=== PATIENT | female | born 1995 | race African-American/Black ===

== ENCOUNTER 2016-11-02 22:03 | Emergency (ER) | payer OTHER ==
[~2016-11-02] VITALS: Ht 165.1 cm; Wt 59.0 kg
--- NOTE | 2016-11-02 22:11 | PD ---
Physical Exam Date Seen by Provider: Nov 02, 2016 Time Seen by Provider: 22:09 Narrative 21 year old female presents to the emergency department for evaluation of sharp left lower abdominal/pelvic pain that started 2 days ago. LMP 10/18/2016. Pain 10/05. Denies any urinary symptoms. Patient awaiting bed placement. [facility] Supervised Visit with FILIBERTO: Nisreen Cotter Nov 02, 2016 22:11
[2016-11-02 22:46] VITALS: BP 132/58; PULSE 78; RESP 20; TEMP 98.6; O2SAT 98
[2016-11-02 22:59] VITALS: BP 126/90; PULSE 94; RESP 14; TEMP 98; O2SAT 99
[2016-11-03] MEDS ORDERED: DICL75TA PO (19:10)
== END 2016-11-02 22:57 | disposition left against medical advice (07) ==
LOC: NED 22:03
DX: R10.32 Left lower quadrant pain (principal); R10.2 Pelvic and perineal pain
CPT/HCPCS: 99281

== ENCOUNTER 2016-11-03 16:54 | Emergency (ER) | payer OTHER ==
[2016-11-03 16:55] VITALS: BP 136/81; PULSE 86; RESP 16; TEMP 99.3; O2SAT 98
[2016-11-03] MEDS ORDERED: AZITHROMYCIN PWD FOR SUSP 1 GM PACKET PO ONE (18:00)
--- NOTE | 2016-11-03 18:05 | PD ---
HPI Chief Complaint: Abdominal Pain Time Seen by Provider: 18:01 Travel History International Travel<30 days: No Contact w/Intl Traveler<30days: No Traveled to known affect area: No History of Present Illness HPI 21-year-old black female presents emergency department with a 3-4 day history of lower pelvic discomfort. She states that she has had a white vaginal discharge, increased urinary frequency and dysuria. She also complains of some mild lower back pain worse on the left. She states that there is no palliative activity. She does report some increase pain with movement. She denies any associated fever or chills, nausea, vomiting or upper abdominal pain. No rashes or lesions. She reports one sexual partner. She states that she usually uses condoms but not all the time. Patient's appetite has been unaffected. PFSH Past Medical History Narrative Medical Asthma Asthma: Yes Respiratory: Yes (ASTHMA) Tetanus Vaccination: < 5 Years ?: Not LMP: 10/23/16 : 0 Past Surgical History Narrative Surgical tONSILLECTOMY Tonsillectomy: Yes Other Surgery: Yes (ENT A CHILD) Social History Alcohol Use: Yes (occ) Tobacco Use: Yes Substance Use: Yes (marijuana) Allergies-Medications (Allergen,Severity, Reaction): Coded Allergies: Penicillin (Verified Allergy, Severe, 11/03/16) Amoxicillin (Verified Allergy, Unknown, 11/03/16) Uncoded Allergies: LORIBID (Allergy, Unknown, 01/20/16) Reported Meds & Prescriptions Reported Meds & Active Scripts Active Diclofenac Sodium DR (Diclofenac Sodium) 75 Mg Tabdr 75 Mg PO BID Review of Systems Except as stated in HPI: all other systems reviewed are Neg General / Constitutional: No: Fever, Chills Eyes: No: Blurred Vision, Photophobia HENT: No: Headaches, Lightheadedness Cardiovascular: No: Chest Pain or Discomfort, Palpitations Respiratory: No: Cough, Shortness of Breath Gastrointestinal: No: Nausea, Vomiting, Abdominal Pain Genitourinary: Positive: Frequency, Dysuria, Pelvic Pain, Discharge, No: Vaginal Bleeding Musculoskeletal: No: Myalgias, Arthralgias Skin: No Rash, No Itching Physical Exam Narrative GENERAL: Well-developed, well-nourished in no apparent distress. Nontoxic appearing. HEAD: Normocephalic, atraumatic. EYES: Pupils equal round and reactive. Extraocular motions intact. No scleral icterus. No injection or drainage. ENT: Nose clear. Throat without erythema, tonsillar hypertrophy or exudate. Uvula midline. Airway patent. NECK: Trachea midline. Supple, nontender, moves head freely. No central bony tenderness or spasm. CARDIOVASCULAR: Regular rate and rhythm without murmurs, gallops, or rubs. RESPIRATORY: Clear to auscultation. Breath sounds equal bilaterally. No wheezes , rales, or rhonchi. GASTROINTESTINAL: Abdomen soft, mild suprapubic tenderness, nondistended. No hepato-splenomegaly, or palpable masses. No guarding. EXTREMITIES: No clubbing, cyanosis, or edema. No joint tenderness. BACK: Left lower back pain without deformity. Positive left flank tenderness. NEUROLOGICAL: Awake, alert and oriented x 3 .Cranial nerves grossly intact. Motor and sensory grossly within normal limits. Normal speech. Data Data Last Documented VS Vital Signs Date Time Temp Pulse Resp B/P Pulse Ox O2 Delivery O2 Flow Rate FiO2 11/03/16 19:15 66 16 120/59 99 11/03/16 16:55 99.3 Room Air Orders Gc And Chlamydia Pcr (11/03/16 17:57) Wet Prep Profile (11/03/16 17:57) Urinalysis - C+S If Indicated (11/03/16 17:57) Azithromycin Powd Pack (Zithromax Powd P (11/03/16 18:00) Ed Urine Pregnancytest Poc (11/03/16 17:57) Labs Laboratory Tests Test 11/03/16 18:30 Urine Color YELLOW Urine Turbidity CLEAR Urine pH 6.5 Urine Specific [place] 1.028 Urine Protein 30 mg/dL Urine Glucose (UA) NEG mg/dL Urine Ketones NEG mg/dL Urine Occult Blood NEG Urine Nitrite NEG Urine Bilirubin NEG Urine Urobilinogen 2.0 MG/DL Urine Leukocyte Esterase NEG Urine RBC 2 /hpf Urine WBC 2 /hpf Urine Squamous Epithelial 1 /hpf Cells Urine Mucus FEW /lpf Microscopic Urinalysis Comment CULT NOT INDICATED Clue Cells (Wet Prep) NONE SEEN Vaginal Trichomonas (Wet Prep) NONE SEEN Vaginal Yeast (Wet Prep) NONE SEEN MDM Medical Decision Making Medical Screen Exam Complete: Yes Emergency Medical Condition: Yes Medical Record Reviewed: Yes Interpretation(s) Laboratory Tests Test 11/03/16 18:30 Urine Color YELLOW Urine Turbidity CLEAR Urine pH 6.5 Urine Specific [place] 1.028 Urine Protein 30 mg/dL Urine Glucose (UA) NEG mg/dL Urine Ketones NEG mg/dL Urine Occult Blood NEG Urine Nitrite NEG Urine Bilirubin NEG Urine Urobilinogen 2.0 MG/DL Urine Leukocyte Esterase NEG Urine RBC 2 /hpf Urine WBC 2 /hpf Urine Squamous Epithelial 1 /hpf Cells Urine Mucus FEW /lpf Microscopic Urinalysis Comment CULT NOT INDICATED Clue Cells (Wet Prep) NONE SEEN Vaginal Trichomonas (Wet Prep) NONE SEEN Vaginal Yeast (Wet Prep) NONE SEEN Differential Diagnosis Differential diagnosis: Ureterolithiasis, pyelonephritis, UTI, vaginitis, STD Narrative Course Patient's urine is sent for lab and they all because been set up for cultures. Patient is given 2 g of Zithromax due to penicillin and Lorabid allergy. Patient's wet prep is negative. Her urine is negative. This is pelvic pain Procedures Procedure Narrative GENITOURINARY: Normal external genitalia without lesions or erythema. Vaginal vault without blood or drainage. Cervical os was closed without drainage. No cervical motion tenderness. Uterus nontender and nonenlarged. Bilateral adnexa nontender without masses. Diagnosis Primary Impression: Pelvic pain Patient Instructions: General Instructions Departure Forms: Tests/Procedures, Work Release Special Instructions: No work 2 days. Additional Instructions: Rest. Increase fluids. Diclofenac. Follow-up with your doctor in next 2-3 days. Return to the ER for any problems or worsening. Med/Other Pt SpecificInfo: Prescription(s) given Scripts Diclofenac Sodium DR 75 Mg Tabdr75 Mg PO BID #10 TAB Prov:Lina Null MD 11/03/16 Disposition: 01 DISCHARGE HOME Condition: Stable Rashawn Henao Nov 03, 2016 18:05
[2016-11-03 19:02] LABS: BLOOD, URINE NEG (NEG); COMMENT (UR) CULT NOT INDICATED; CULTURE IF INDICATED CULT NOT INDICATED; GLUCOSE,URINE NEG (NEG); KETONE, URINE NEG (NEG); MUCUS URINE FEW /lpf (OCC); NITRITE,URINE NEG (NEG); PH, URINE 6.5 (5.0-8.5); SQUAMOUS EPITHELIAL CELL URINE 1 /hpf (0-5); URINE COLOR YELLOW (YELLW/STRAW)
[2016-11-03] MEDS ORDERED: DICL75TA PO (19:10)
[2016-11-03 19:15] VITALS: BP 120/59; PULSE 66; RESP 16; O2SAT 99
[2016-11-03 22:11] LABS: CHLAMYDIA PCR NOT DETECTED (NOT DETECT); NEISSERIA PCR NOT DETECTED (NOT DETECT)
== END 2016-11-03 19:21 | disposition home or self-care (01) ==
LOC: NEPD 16:54
DX: R10.2 Pelvic and perineal pain (principal); R30.0 Dysuria; N89.8 Other specified noninflammatory disorders of vagina; R35.0 Frequency of micturition; M54.5 Low back pain; J45.909 Unspecified asthma, uncomplicated; Z72.0 Tobacco use
CPT/HCPCS: 81001; 84703; 87210; 87491; 87591; 99284

== ENCOUNTER 2016-12-06 23:55 | Emergency (ER) | payer OTHER ==
[~2016-12-06] VITALS: Ht 165.1 cm; Wt 60.0 kg
[~2016-12-06 23:55] MED LIST: DICL75TA PO
[2016-12-06 23:58] VITALS: BP 107/75; PULSE 77; RESP 16; TEMP 98.5; O2SAT 100
--- NOTE | 2016-12-07 01:54 | PD ---
HPI Chief Complaint: Respiratory Symptoms Time Seen by Provider: 01:47 Travel History International Travel<30 days: No Contact w/Intl Traveler<30days: No Traveled to known affect area: No History of Present Illness HPI This is a 21-year-old female to asthma, presents today with points of wheezing and cough. The patient states that she is out of her albuterol inhaler. She denies any fevers, chills. There are no other complaints the time of my examination. PFSH Past Medical History Asthma: Yes Respiratory: Yes (ASTHMA) Tetanus Vaccination: Unknown Influenza Vaccination: No ?: Not LMP: 11/15/16 : 0 Past Surgical History Tonsillectomy: Yes Other Surgery: Yes (ENT A CHILD) Social History Alcohol Use: Yes (WEEKENDS) Tobacco Use: Yes (1PPW) Substance Use: No Allergies-Medications (Allergen,Severity, Reaction): Coded Allergies: Penicillin (Verified Allergy, Severe, 12/07/16) Amoxicillin (Verified Allergy, Unknown, 12/07/16) Uncoded Allergies: LORIBID (Allergy, Unknown, 01/20/16) Reported Meds & Prescriptions Reported Meds & Active Scripts Active Ventolin Hfa 18 GM Inh (Albuterol Sulfate) 90 Mcg/Act Aer 2 Puff INH Q4-6H PRN Diclofenac Sodium DR (Diclofenac Sodium) 75 Mg Tabdr 75 Mg PO BID Reported Ventolin Hfa 18 GM Inh (Albuterol Sulfate) 90 Mcg/Act Aer 2 Puff INH Q6H PRN Review of Systems Except as stated in HPI: all other systems reviewed are Neg General / Constitutional: No: Fever, Chills HENT: No: Headaches, Lightheadedness Cardiovascular: No: Chest Pain or Discomfort, Palpitations Respiratory: Positive: Cough (nonproductive), Shortness of Breath, Wheezing Physical Exam Narrative GENERAL: Well-nourished, well-developed patient, in no acute distress. SKIN: Focused skin assessment warm/dry. HEAD: Normocephalic/atraumatic. EYES: No scleral icterus. No injection or drainage. NECK: Supple, trachea midline. CARDIOVASCULAR: Regular rate and rhythm without murmurs, gallops, or rubs. RESPIRATORY: Wheezing at the bilateral bases. No Rales appreciated NEUROLOGICAL: Awake and alert. Cranial nerves II through XII intact. Motor grossly within normal limits. Five out of 5 muscle strength in all muscle groups. Normal speech. Data Data Last Documented VS Vital Signs Date Time Temp Pulse Resp B/P Pulse Ox O2 Delivery O2 Flow Rate FiO2 12/07/16 01:37 20 Nasal Cannula 2 12/06/16 23:58 98.5 77 107/75 100 Orders Chest, Single Ap (12/07/16 ) Albuterol Neb (Albuterol Neb) (12/07/16 02:00) MDM Medical Decision Making Medical Screen Exam Complete: Yes Emergency Medical Condition: Yes Differential Diagnosis Pneumonia versus asthma exacerbation versus bronchitis Narrative Course 21-year-old female history asthma, presents with complaints of wheezing. The patient states she is out of her albuterol inhaler. The patient had wheezing in her bilateral bases. She was given 2 nebulizer treatments. On reexamination at 03:15, patient has no wheezes. The patient will be given a prescription for an albuterol MDI. Diagnosis Primary Impression: Asthma exacerbation Med/Other Pt SpecificInfo: Prescription(s) given Scripts Albuterol 18 GM Inh (Ventolin Hfa 18 GM Inh)90 Mcg/Act Aer2 Puff INH Q4-6H PRN ( SHORTNESS OF BREATH) #1 INHALER Ref 0 Prov:Livan Bean MD 12/07/16 Disposition: 01 DISCHARGE HOME Condition: Stable Livan Bean MD December 07, 2016 01:53
--- NOTE | 2016-12-07 02:03 | RADRPT ---
EXAM DATE/TIME: 12/07/2016 01:50 [facility] COMPARISON: No previous studies available for comparison. INDICATIONS : Shortness of breath and chest tightness. MEDICAL HISTORY : None. SURGICAL HISTORY : None. ENCOUNTER: Initial ACUITY: 2 days PAIN SCORE: 0/10 LOCATION: chest FINDINGS: A single view of the chest demonstrates the lungs to be symmetrically aerated without evidence of mas s, infiltrate or effusion. The cardiomediastinal contours are unremarkable. Osseous structures are intact. CONCLUSION: Normal examination for a patient of this age. Tico Sosa MD on December 07, 2016 at 2:01 Board Certified Radiologist. This report was verified electronically.
[2016-12-07] MEDS: RESP: ALBUTEROL 2.5 MG/3 ML NEB (SCH) INH ×2 (02:19→02:24)
[2016-12-07] MEDS ORDERED: VENTAER INH ×2 (02:56→03:11)
== END 2016-12-07 03:58 | disposition home or self-care (01) ==
LOC: NEPE 23:55
DX: J45.901 Unspecified asthma with (acute) exacerbation (principal); Z72.0 Tobacco use
CPT/HCPCS: 71010; 94640; 94664; 99283; J7613

== ENCOUNTER 2018-01-11 22:42 | Emergency (ER) | payer SELFPAY ==
[~2018-01-11 22:42] MED LIST changes: +VENTAER INH
[2018-01-11 22:50] VITALS: BP 129/76; PULSE 89; RESP 18; TEMP 98.6; O2SAT 99
== END 2018-01-12 00:35 | disposition left against medical advice (07) ==
LOC: NED 22:42
DX: K13.79 Other lesions of oral mucosa (principal); Z53.21 Procedure and treatment not carried out due to patient leaving prior to being seen by health care provider
CPT/HCPCS: 99281